=== PATIENT | male | born 1985 | race Caucasian/White ===

== ENCOUNTER 2017-01-23 15:33 | Emergency (ER) | payer OTHER ==
--- NOTE | 2017-01-23 17:13 | ED ---
Respiratory - HPI Summary HPI Summary: 32M presents with cough on and off for 2 weeks. He states he has been suffering from allergies and has been using antihistamine and nasal steroid. He states that two weeks ago he had a cold that it resolved but then he developed a cough again. He states the cough is dry but that when he has a coughing fit he feels SOB. He denies any chest pain or abdominal pain. He admits to sore throat and nasal congestion. - History of Current Complaint Chief Complaint: UCRespiratory Stated Complaint: COUGH Time Seen by Provider: 01/23/17 16:55 - Allergy/Home Medications Allergies/Adverse Reactions: Allergies Allergy/AdvReac Type Severity Reaction Status Date / Time No Known Allergies Allergy Verified 01/23/17 16:09 PMH/Surg Hx/FS Hx/Imm Hx Endocrine/Hematology History: Denies: Hx Diabetes, Hx Thyroid Disease Cardiovascular History: Denies: Hx Hypertension Respiratory History: Denies: Hx Asthma, Hx Chronic Obstructive Pulmonary Disease (COPD) GI History: Denies: Hx Ulcer Infectious Disease History: No Infectious Disease History: Denies: Hx Clostridium Difficile, Hx Hepatitis, Hx Human Immunodeficiency Virus (HIV), Hx of Known/Suspected MRSA, Hx Shingles, Hx Tuberculosis, Hx Known/ Suspected VRE, Hx Known/Suspected VRSA, History Other Infectious Disease, Traveled Outside the [place] in Last 30 Days - Family History Known Family History: Positive: Cardiac Disease - Social History Alcohol Use: None Substance Use Type: Reports: None Smoking Status (MU): Never Smoked Tobacco Review of Systems Negative: Fever Negative: Chest Pain Positive: Shortness Of Breath, Cough Negative: Abdominal Pain All Other Systems Reviewed And Are Negative: Yes Physical Exam Triage Information Reviewed: Yes Vital Signs On Initial Exam: Initial Vitals Temp Pulse Resp BP Pulse Ox 97.7 F 90 18 129/81 98 01/23/17 16:02 01/23/17 16:02 01/23/17 16:02 01/23/17 16:02 01/23/17 16:02 Vital Signs Reviewed: Yes Appearance: Positive: Well-Appearing Skin: Positive: Warm, Dry Head/Face: Positive: Normal Head/Face Inspection Eyes: Positive: Normal, Conjunctiva Clear ENT: Positive: Normal ENT inspection, Nasal congestion, TMs normal, Other - post nasal drip seen Respiratory/Lung Sounds: Positive: Clear to Auscultation, Breath Sounds Present Cardiovascular: Positive: Normal, RRR Diagnostics - Vital Signs Vital Signs Temp Pulse Resp BP Pulse Ox 01/23/17 16:02 97.7 F 90 18 129/81 98 - Laboratory Lab Statement: Any lab studies that have been ordered have been reviewed, and results considered in the medical decision making process. Disposition - Course Course Of Treatment: 32M presents with cough and nasal congestion for 2 weeks. states has history of allergies has been taking antihistamine off and on. friend has bronchitis. states SOB when coughs. on exam lungs CTA. will give inhaler and tessalon for cough. patient understands and agrees with plan - Differential Dx - Cardiopulmonary Differential Diagnoses - Cardiopulmonary: Bronchitis, Influenza, Lower Resp Infection - Diagnoses Provider Diagnoses: Bronchitis Discharge - Discharge Plan Condition: Good Disposition: HOME Prescriptions: Albuterol HFA INHALER* [Ventolin HFA Inhaler*] 1 puff INH Q4H PRN #1 mdi PRN Reason: Cough Benzonatate CAP* [Tessalon 100 MG CAP*] 100 mg PO TID #15 cap Patient Education Materials: Acute Bronchitis (ED) Referrals: No Primary Care Phys,NOPCP [Primary Care Provider] - [facility] [place] [facility] [place] Additional Instructions: Can use tessalon up to three times a day for cough Use inhaler one puff every 4 hours for cough as needed Use nasal spray for allergies one spray each nostril Take antihistamine once a day for allergies Establish care with primary care physician Return to ED if develop any new or worsening symptoms
== END 2017-01-23 17:40 | disposition home or self-care (01) ==
LOC: UCEAST 15:33
DX: J40 Bronchitis, not specified as acute or chronic (principal)
CPT/HCPCS: 99202; G0463

== ENCOUNTER 2017-02-13 10:44 | Emergency (ER) | payer OTHER ==
[2017-02-13 10:57] VITALS: BP 146/83
[2017-02-13] MEDS ORDERED: Ketorolac INJ* 60 MG/2 ML VIAL IM ONE (11:31)
--- NOTE | 2017-02-22 15:42 | UC ---
Rob Rivero SooYoung, scribed for Alexa Ren DO on 02/13/17 at 1058 . Respiratory Complaint HPI - HPI Summary HPI Summary: A 32 y/o M presents to [facility] [place] with c/o worsening, L-sided acute CP around lower ribcage onset two weeks ago. Aggravating factors include coughing, sneezing, laughing, etc. Pert PMHx: two weeks ago, pt was seen at [facility] [place] for a respiratory infection and given ABX; pectus excavatum. At its worst, he rates the pain as 7- 8 out of 10, with the pain radiating around his L-side and to his back. Denies dizziness, diaphoresis, n/v/d, fever, chills. He notes also having allergies currently, but is otherwise feeling healthy. Pt is a nonsmoker. NKA. - History of Current Complaint Chief Complaint: UCRespiratory Stated Complaint: CHEST PAIN Time Seen by Provider: 02/13/17 10:51 Hx Obtained From: Patient Onset/Duration: Lasting Weeks, Still Present Timing: Intermittent Episodes Severity Initially: Moderate Severity Currently: Moderate Pain Intensity: 7 Pain Scale Used: 0-10 Numeric Aggravating Factors: Allergens, Deep Breaths Associated Signs And Symptoms: Positive: Negative - Allergies/Home Medications Allergies/Adverse Reactions: Allergies Allergy/AdvReac Type Severity Reaction Status Date / Time No Known Allergies Allergy Verified 02/13/17 10:57 PMH/Surg Hx/FS Hx/Imm Hx Previously Healthy: Yes Endocrine History Of: Denies: Diabetes, Thyroid Disease Cardiovascular History Of: Denies: Cardiac Disorders, Hypertension Respiratory History Of: Denies: COPD, Asthma GI/ History Of: Denies: Ulcer - Surgical History Surgical History: None - Family History Known Family History: Positive: Cardiac Disease - grandfather MS at 50 y/o - Social History Occupation: Employed Full-time Lives: Alone Alcohol Use: None Substance Use Type: None Smoking Status (MU): Never Smoked Tobacco Review of Systems Constitutional: Negative Skin: Negative Eyes: Negative ENT: Negative Respiratory: Negative Cardiovascular: Chest Pain - associated with coughing, sneezing, laughing, etc Gastrointestinal: Negative Genitourinary: Negative Motor: Negative Neurovascular: Negative Musculoskeletal: Negative Neurological: Negative Psychological: Negative All Other Systems Reviewed And Are Negative: Yes Physical Exam Triage Information Reviewed: Yes Appearance: Well-Appearing, No Pain Distress, Well-Nourished Vital Signs: Initial Vital Signs Temp 98 F 02/13/17 10:51 Pulse 80 02/13/17 10:51 Resp 18 02/13/17 10:51 BP 146/83 02/13/17 10:51 Pulse Ox 97 02/13/17 10:51 Vital Signs Reviewed: Yes Eyes: Positive: Conjunctiva Clear. Negative: Discharge ENT: Positive: Hearing grossly normal. Negative: Muffled/hoarse voice Neck exam: Normal Neck: Positive: Supple Respiratory: Positive: Lungs clear, Normal breath sounds, No respiratory distress, No accessory muscle use, Other: - POS: REPRODUCIBLE CHEST WALL PAIN AT RIB HEADS 4, 5, 6 SLIGHTLY POSTERIOR; pectus excavatum. Negative: Rhonchi, Wheezing Cardiovascular: Positive: RRR, No Murmur Musculoskeletal Exam: Normal Neurological: Positive: Alert, Muscle Tone Normal Psychological Exam: Normal Psychological: Positive: Age Appropriate Behavior Skin Exam: Normal, Other - pos: warm, dry, nml color UC Diagnostic Evaluation - Laboratory O2 Sat by Pulse Oximetry: 97 Respiratory Course/Dx - Course Course Of Treatment: Hypertensive BP reading; patient referred to PCP for follow -up within 4 weeks. - Differential Dx/Diagnosis Provider Diagnoses: Costochondritis, rib dysfunction, HTN Discharge - Discharge Plan Condition: Stable Disposition: HOME Prescriptions: Naproxen [Naproxen EC 500 MG TAB] 500 mg PO BID #14 tab traMADol TAB* [Ultram*] 50 mg PO Q8H PRN #14 tab MDD 3 TABS PRN Reason: Pain Patient Education Materials: Naproxen (By mouth), Tramadol (By mouth), Costochondritis (ED) Referrals: [facility] [place] [facility] [Outside] (Follow up in 1 week if not improving. Follow up sooner if your symptoms worsen or new symptoms develop.) No Primary Care Phys,NOPCP [Medical Doctor] - Additional Instructions: ANTI-INFLAMMATORY MEDICATION: You have received a prescription for an antiinflammatory agent. This is an excellent, safe drug for pain control. In addition, it has potent antiinflammatory effects which are beneficial, especially in the treatment of injuries, arthritis, or tendonitis. It's best to take this medicine with food. Persons with ulcer disease or allergy to aspirin should notify their physician of this before taking this drug. Take the medication exactly as prescribed. Don't take additional doses unless instructed to do so by your doctor. If you develop wheezing, shortness of breath, hives, faintness, stomach pain, vomiting, or dark black stools, return for re-evaluation at once. ULTRAM (tramadol hydrochloride): Ultram is an excellent drug for pain relief. It is not a narcotic, but it works in a similar way. Ultram can take up to two hours for full effect. Although not addicting, Ultram is best avoided in patients with a history of drug abuse. Ultram should not be used with alcohol, sleeping pills, or narcotics. If you're prone to seizures, Ultram can make you more likely to have a seizure. Ultram can be hazardous when combined with MAO-inhibitor antidepressants (such as Nardil or Parnate). Be sure your doctor is aware of all medicines you are taking. Persons with severe liver or kidney disease should increase the time between doses of Ultram. Discuss this with your doctor if you're uncertain. Side effects of Ultram can include dizziness, nausea, constipation, sleepiness, and itching. (These side effects are also seen with narcotic pain medicines.) Please call your doctor if you have other disturbing effects. Return to Urgent Care if you have any new or worsening symptoms. It's recommended that you also see an plasma specialist who uses [employer], an osteopath who focuses exclusively on osteopathic manipulation, or a chiropractor. Your blood pressure reading today was 146/83, which is HYPERTENSIVE. Establish with a new primary care provider and follow-up within 4 weeks for blood pressure readings and further evaluation. If you can't find a provider, try to check your blood pressure on your own and see if its above 120/80. If so, follow up for further evaluation and treatment. FOLLOW-UP CARE: You should establish with a private physician for follow-up care. If you are unable to get a timely appointment, or if you are worsening, call us or return for re-evaluation. An additional resource available to assist in finding the appropriate physician for your health care needs is the Physician Referral Center. You may contact them by calling [phone]. The documentation as recorded by the Rob barnett SooYoung accurately reflects the service I personally performed and the decisions made by Mikal haque Michelle A, DO.
== END 2017-02-13 12:18 | disposition home or self-care (01) ==
LOC: UCEAST 10:44
DX: M94.0 Chondrocostal junction syndrome [Tietze] (principal); M99.08 Segmental and somatic dysfunction of rib cage; I10 Essential (primary) hypertension
CPT/HCPCS: 96372; 99212; G0463; J1885

== ENCOUNTER 2018-02-17 10:42 | Emergency (ER) | payer OTHER ==
--- NOTE | 2018-02-17 13:18 | UC ---
Respiratory Complaint HPI - HPI Summary HPI Summary: Patient with a history of allergies presents complaining of about one week of postnasal drainage and cough that is keeping him up at night. States this feels like his allergy symptoms. No fever, sore throat, ear pain, nausea/ vomiting. Symptoms worse at night. Is taking loratadine and using a nasal spray with some moderate relief of symptoms. - History of Current Complaint Chief Complaint: UCRespiratory Stated Complaint: COUGH Time Seen by Provider: 02/17/18 12:55 Hx Obtained From: Patient Onset/Duration: Gradual Onset, Lasting Days, Still Present Timing: Constant Severity Initially: Moderate Severity Currently: Moderate Pain Intensity: 6 Pain Scale Used: 0-10 Numeric Character: Cough: Nonproductive Aggravating Factors: Allergens Alleviating Factors: Nothing Associated Signs And Symptoms: Positive: Nasal Congestion. Negative: Dyspnea, Fever, Chills, Wheezing - Allergies/Home Medications Allergies/Adverse Reactions: Allergies Allergy/AdvReac Type Severity Reaction Status Date / Time No Known Allergies Allergy Verified 02/17/18 11:10 Home Medications: Home Medications Fluticasone Propionate [Flonase Allergy Relief] 50 mcg NA 02/17/18 [History] LoraTADine TAB(NF) [Claritin 10 MG TAB(NF)] 10 mg PO DAILY 02/17/18 [History Confirmed 02/17/18] PMH/Surg Hx/FS Hx/Imm Hx - Additional Past Medical History Additional PMH: ALLERGIES - Surgical History Surgical History: None - Family History Known Family History: Positive: Cardiac Disease - grandfather CT at 50 y/o Negative: Hypertension - Social History Alcohol Use: Rare Substance Use Type: None Smoking Status (MU): Never Smoked Tobacco Review of Systems Constitutional: Negative Eyes: Negative ENT: Nasal Discharge Respiratory: Cough Cardiovascular: Negative Gastrointestinal: Negative All Other Systems Reviewed And Are Negative: Yes Physical Exam Triage Information Reviewed: Yes Appearance: Well-Appearing, No Pain Distress, Well-Nourished Vital Signs: Initial Vital Signs Temp 98.4 F 02/17/18 11:07 Pulse 77 02/17/18 11:07 Resp 18 02/17/18 11:07 BP 129/80 02/17/18 11:07 Pulse Ox 98 02/17/18 11:07 Vital Signs Reviewed: Yes Eyes: Positive: Conjunctiva Clear ENT: Positive: Hearing grossly normal, Pharynx normal, TMs normal Neck: Positive: Supple, Nontender, No Lymphadenopathy Respiratory Exam: Normal Cardiovascular Exam: Normal Abdomen Description: Positive: Soft Musculoskeletal: Positive: No Edema Neurological: Positive: Alert Psychological: Positive: Age Appropriate Behavior Skin: Negative: rashes UC Diagnostic Evaluation - Laboratory O2 Sat by Pulse Oximetry: 98 Respiratory Course/Dx - Differential Dx/Diagnosis Provider Diagnoses: ENVIRONMENTAL ALLERGIES Discharge - Sign-Out/Discharge Documenting (check all that apply): Discharge/Admit/Transfer - Discharge Plan Condition: Stable Disposition: HOME Prescriptions: Albuterol HFA INHALER* [Ventolin HFA Inhaler*] 2 puff INH Q4H PRN #1 mdi PRN Reason: Shortness Of Breath predniSONE TAB* [Deltasone TAB*] 50 mg PO DAILY #5 tab Patient Education Materials: Allergic Rhinitis (ED), Allergies (ED) Referrals: No Primary Care Phys,NOPCP [Primary Care Provider] - Additional Instructions: YOUR SYMPTOMS ARE LIKELY RELATED TO ENVIRONMENTAL/SEASONAL ALLERGIES. CONTINUE YOUR ANTIHISTAMINE AND NASAL SPRAY. WILL GIVE PREDNISONE FOR YOU TO TAKE ONCE DAILY WHICH WILL ALSO HOPEFULLY IMPROVE YOUR SYMPTOMS. IF NO IMPROVEMENT AFTER THIS TREATMENT OVER THE NEXT 1 WEEK SEEK FOLLOW-UP EITHER HERE OR WITH A PCP FOR FURTHER EVALUATION. NO INDICATION FOR ANTIBIOTICS AT PRESENT. REST, HYDRATE. CALL THE NUMBER BELOW FOR ASSISTANCE IN ESTABLISHING WITH A PCP An additional resource available to assist in finding the appropriate physician for your health care needs is the [facility]erral [facility] ([facility]). You may contact them by calling [phone]. - Billing Disposition and Condition Condition: STABLE Disposition: HOME
[2018-02-17 13:32] VITALS: BP 124/90
== END 2018-02-17 13:30 | disposition home or self-care (01) ==
LOC: UCEAST 10:42
DX: J31.0 Chronic rhinitis (principal)
CPT/HCPCS: 99212; G0463